=== PATIENT | female | born 1970 | race Two or more races ===

== ENCOUNTER 2022-05-02 18:25 | Emergency (ER) | payer BC ==
[~2022-05-02] VITALS: Ht 152.4 cm; Wt 100.0 kg
[~2022-05-02 18:25] MED LIST: MECL1TAB42 PO; [UNRECOGNIZED DRUG - CODE]
[2022-05-02] MEDS ORDERED: PERCOT PO (22:25)
[2022-05-02] MEDS ORDERED: ONDA-144 PO (22:25)
[2022-05-02] MEDS ORDERED: ONDANSETRON ODT 4 MG TAB PO ONE (22:30)
[2022-05-02] MEDS ORDERED: OXYCODONE W/ ACETAMINOPHEN 5/325MG TABLET PO ONE (22:30)
[2022-05-02 22:45] VITALS: BP 130/77
== END 2022-05-02 22:55 | disposition home or self-care (01) ==
LOC: EDBD 18:25 → EDUNIT# 18:25 → ER 18:31
DX: R51.9 Headache, unspecified (principal); M54.2 Cervicalgia; M54.50 Low back pain, unspecified; Z90.49 Acquired absence of other specified parts of digestive tract; Z79.899 Other long term (current) drug therapy; V49.9XXA Car occupant (driver) (passenger) injured in unspecified traffic accident, initial encounter; Y93.89 Activity, other specified; Y92.89 Other specified places as the place of occurrence of the external cause; Y99.8 Other external cause status
CPT/HCPCS: 70450; 71250; 72125; 74176; 99284; Q0162

== ENCOUNTER 2022-11-21 21:35 | Emergency (ER) | payer BC ==
[~2022-11-21] VITALS: Ht 152.4 cm; Wt 104.3 kg
[~2022-11-21 21:35] MED LIST changes: +ONDA-144 PO; +PERCOT PO
[2022-11-21 22:14] LABS: Basophils # (auto) 0.1 10 ^3/uL (0-0.2); Basophils % (auto) 0.4 % (0.0-2.0); Eosinophils # (auto) 0.2 10 ^3/uL (0-0.8); Eosinophils % (auto) 1.3 % (0.0-7.0); Hematocrit 42.6 % (36.0-46.0); Hemoglobin 14.1 g/dL (12.2-16.2); Lymphocytes # (auto) 1.5 10 ^3/uL (0.4-5.4); Mean Corpuscular Hemoglobin 28.2 pg (28.0-32.0); Mean Corpuscular Volume 85.6 fL (80.0-100.0); Monocytes % (auto) 7.8 % (0.0-12.0); Neutrophils # (auto) 9.9 10 ^3/uL (1.6-8.6); Neutrophils % (auto) 78.5 % (37.0-80.0); Nucleated Red Blood Cells % 0.1 %; Red Blood Cells 4.98 10^6/uL (4.0-5.20); Red Cell Distribution Width 14.4 % (11.8-14.3); White Blood Cell 12.7 10^3/uL (4.4-10.8)
[2022-11-21 22:23] LABS: Urine Bacteria NONE SEEN /hpf (None Seen); Urine Blood TRACE /uL (Negative); Urine Mucus FEW (None Seen); Urine Specific Gravity 1.021 (1.001-1.035); Urine WBC <1 /hpf (0 - 5)
[2022-11-21 22:32] LABS: Albumin 3.7 g/dL (3.4-5.0); Calcium 8.8 mg/dL (8.5-10.1); Potassium 4.1 mmol/L (3.5-5.1)
[2022-11-21 22:34] LABS: BUN/Creatinine Ratio 19.2 (10.0-20.0); Bilirubin, Total 0.3 mg/dL (0.2-1.0); Total Protein 8.2 g/dL (6.4-8.2)
[2022-11-21] MEDS ORDERED: MORPHINE SULFATE 4 MG/ML SYR/VIAL IV ONE (22:45)
[2022-11-21] MEDS ORDERED: PANTOPRAZOLE 40 MG/10 ML VIAL INJ IV ONE (22:45)
[2022-11-21] MEDS ORDERED: SODIUM CHLORIDE 0.9% 1,000 ML IVB ONE (22:45)
[2022-11-21] MEDS ORDERED: PROCHLORPERAZINE EDISYLATE 5 MG/ML 2ML VIAL IV ONE (22:45)
[2022-11-22] MEDS ORDERED: HYDROmorphone HCL 2 MG/ML VL/or syr IV ONE (01:45)
[2022-11-22 02:48] VITALS: BP 110/57
== END 2022-11-22 02:58 | disposition home or self-care (01) ==
LOC: ER 21:35
DX: R10.13 Epigastric pain (principal); Z79.899 Other long term (current) drug therapy; Z90.49 Acquired absence of other specified parts of digestive tract; Z98.890 Other specified postprocedural states
CPT/HCPCS: 36415; 76705; 80053; 81001; 81025; 83690; 85025; 96361; 96374; 96375; 99285; C9113; J0780; J1170; J2270; J7030